=== PATIENT | female | born 1950 | race Caucasian/White ===

== ENCOUNTER 2019-01-19 22:34 | Emergency (ER) | payer MEDICARE ==
[~2019-01-19] VITALS: Ht 165.1 cm; Wt 69.9 kg
--- NOTE | 2019-01-19 23:22 | PHYS DOC ---
Past Medical History Past Medical History: No Pertinent History Past Surgical History: Hysterectomy, Tonsillectomy Alcohol Use: Rarely Drug Use: Marijuana, Methamphetamine Social History Narrative: Former user of crack cocaine, and occasionally uses "shatter" Adult General Chief Complaint Chief Complaint: LOWER EXTREMITY SWELLING HPI HPI 68-year-old female presents to ER via POV for complaints of right lower leg swelling and redness. Patient reports he was the swelling last night and today woke and was having more pain in the lower part of her leg. Patient denies any known injury. Patient denies fever. Patient denies any recent travel, clotting disorder, or prior blood clots in legs or lungs. Patient denies any nausea or vomiting. Patient states she has been ambulatory without assistive devices. Patient denies chest pain, palpitations, or shortness of air. She reports she did smoke methamphetamine yesterday and does use alcohol frequently with last use Tuesday having a couple of beers. Review of Systems Review of Systems Constitutional: Denies fever or chills [] Eyes: Denies change in visual acuity, redness, or eye pain [] HENT: Denies nasal congestion or sore throat [] Respiratory: Denies cough or shortness of breath [] Cardiovascular: Denies CP/palpitations GI: Denies abdominal pain, nausea, vomiting, bloody stools or diarrhea [] : Denies dysuria or hematuria [] Musculoskeletal: Denies back pain. Reports swelling/redness w/mild pain rt lower leg into ankle. Reports has been able to walk without assist Integument: Denies rash or skin lesions [] Neurologic: Denies headache, focal weakness or sensory changes [] Endocrine: Denies polyuria or polydipsia [] All other systems were reviewed and found to be within normal limits, except as documented in this note. Current Medications Current Medications Current Medications Medications (Trade) Dose Ordered Sig/Juliane Start Time Stop Time Status Last Admin Dose Admin Ceftriaxone Sodium (Rocephin) 1 gm 1X ONCE 01/20/19 00:45 01/20/19 00:46 DC 01/20/19 00:51 1 GM Allergies Allergies Allergies Coded Allergies Type Severity Reaction Last Updated Verified Benzodiazepines Allergy Unknown 01/19/19 Yes prednisone Allergy Unknown 01/19/19 Yes tetracycline Allergy Unknown 01/19/19 Yes Uncoded Allergies Type Severity Reaction Last Updated Verified opiates Adverse Reaction Unknown 01/19/19 Physical Exam Physical Exam Constitutional: Well developed, well nourished, no acute distress, non-toxic appearance. [] HENT: Normocephalic, atraumatic, oropharynx moist, nose normal. [] Eyes: Pupils equal, conjunctiva normal, no discharge. [] Neck: Normal range of motion, no tenderness, supple, no stridor. [] Cardiovascular: Heart rate regular rhythm, no murmur [] Lungs & Thorax: Bilateral breath sounds clear to auscultation- resp. equal/nonlabored Abdomen: Bowel sounds normal, soft, no tenderness Skin: Warm, dry, no rash. [] Back: No tenderness, no CVA tenderness. [] Extremities: No tenderness on palp, no cyanosis, no clubbing, ROM intact. 2+ bilat. dorsalis pedis/posterior tibial. Erythema to rt lower anterior johnson to ankle with swelling/warmth- no wounds. Erythema extends to medial/lateral side of rt lower leg. No calf tenderness. Rt calf > lt calf Neurologic: Alert and oriented X 3, normal motor function, normal sensory function, no focal deficits noted. [] Psychologic: Affect normal, judgement normal, mood normal. [] Current Patient Data Vital Signs Vital Signs Date Time Temp Pulse Resp B/P (MAP) Pulse Ox O2 Delivery O2 Flow Rate FiO2 01/19/19 22:47 97.7 101 20 148/79 (102) 99 Room Air 97.7 Lab Values Laboratory Tests Test 01/19/19 23:31 01/20/19 00:02 Urine Collection Type Unknown Urine Color Yellow Urine Clarity Cloudy Urine pH 5.5 Urine Specific [place] 1.020 Urine Protein Negative mg/dL (NEG-TRACE) Urine Glucose (UA) Negative mg/dL (NEG) Urine Ketones (Stick) Negative mg/dL (NEG) Urine Blood Small (NEG) Urine Nitrite Negative (NEG) Urine Bilirubin Negative (NEG) Urine Urobilinogen Dipstick 1.0 mg/dL (0.2 mg/dL) Urine Leukocyte Esterase Moderate (NEG) Urine RBC Occ /HPF (0-2) Urine WBC 20-40 /HPF (0-4) Urine Squamous Epithelial Cells Few /LPF Urine Bacteria Few /HPF (0-FEW) Urine Mucus Marked /LPF Urine Opiates Screen Neg (NEG) Urine Methadone Screen Neg (NEG) Urine Barbiturates Neg (NEG) Urine Phencyclidine Screen Neg (NEG) Urine Amphetamine/Methamphetamine Pos (NEG) Urine Benzodiazepines Screen Neg (NEG) Urine Cocaine Screen Neg (NEG) Urine Cannabinoids Screen Neg (NEG) Urine Ethyl Alcohol Neg (NEG) White Blood Count 7.9 x10^3/uL (4.0-11.0) Red Blood Count 4.55 x10^6/uL (3.50-5.40) Hemoglobin 13.3 g/dL (12.0-15.5) Hematocrit 39.6 % (36.0-47.0) Mean Corpuscular Volume 87 fL (79-100) Mean Corpuscular Hemoglobin 29 pg (25-35) Mean Corpuscular Hemoglobin Concent 34 g/dL (31-37) Red Cell Distribution Width 13.5 % (11.5-14.5) Platelet Count 326 x10^3/uL (140-400) Neutrophils (%) (Auto) 59 % (31-73) Lymphocytes (%) (Auto) 30 % (24-48) Monocytes (%) (Auto) 8 % (0-9) Eosinophils (%) (Auto) 2 % (0-3) Basophils (%) (Auto) 1 % (0-3) Neutrophils # (Auto) 4.6 x10^3/uL (1.8-7.7) Lymphocytes # (Auto) 2.4 x10^3/uL (1.0-4.8) Monocytes # (Auto) 0.7 x10^3/uL (0.0-1.1) Eosinophils # (Auto) 0.2 x10^3/uL (0.0-0.7) Basophils # (Auto) 0.1 x10^3/uL (0.0-0.2) Sodium Level 140 mmol/L (136-145) Potassium Level 4.2 mmol/L (3.5-5.1) Chloride Level 107 mmol/L (98-107) Carbon Dioxide Level 25 mmol/L (21-32) Anion Gap 8 (6-14) Blood Urea Nitrogen 15 mg/dL (7-20) Creatinine 0.8 mg/dL (0.6-1.0) Estimated GFR (Cockcroft-Gault) 71.5 BUN/Creatinine Ratio 19 (6-20) Glucose Level 124 mg/dL (70-99) H Lactic Acid Level 1.1 mmol/L (0.4-2.0) Calcium Level 8.9 mg/dL (8.5-10.1) Magnesium Level 2.1 mg/dL (1.8-2.4) Total Bilirubin 0.3 mg/dL (0.2-1.0) Aspartate Amino Transferase (AST) 29 U/L (15-37) Alanine Aminotransferase (ALT) 32 U/L (14-59) Alkaline Phosphatase 97 U/L (46-116) Total Protein 7.3 g/dL (6.4-8.2) Albumin 3.3 g/dL (3.4-5.0) L Albumin/Globulin Ratio 0.8 (1.0-1.7) L Laboratory Tests 01/20/19 00:02 Laboratory Tests 01/20/19 00:02 EKG EKG [] Radiology/Procedures Radiology/Procedures PROCEDURE: VENOUS LOWER EXTREMITY RIGHT INDICATION: Leg swelling and redness COMPARISON: None. TECHNIQUE: Grayscale, color and doppler ultrasound images were obtained of the right lower extremity venous vasculature. RIGHT: No thrombus identified in the common femoral vein, femoral vein, popliteal vein or visualized calf veins. IMPRESSION: 1. No thrombus identified in deep venous system of right lower extremity. Electronically signed by: Terra Fajardo MD (01/20/2019 2:11 AM) [facility] DICTATED and SIGNED BY: TERRA FAJARDO MD DATE: 01/20/19 0211 Course & Med Decision Making Course & Med Decision Making Pertinent Labs and Imaging studies reviewed. (See chart for details) 0110: Discussion had with patient regarding drug cessation as she reported she had smoked methamphetamines yesterday. In depth conversation had with patient as admission was offered for further care and monitoring-patient was adamant on home discharge. Discussed test results. Ultrasound result of right lower extremity is pending. If ultrasound results negative for DVT patient is requesting to be discharged home with antibiotics with plans to follow-up with her primary care physician. Patient remains PMS intact in bilateral lower extremities she has had no increase in redness and right lower leg/ankle area. 0215: Pt was evaluated in the ER for complaints of right lower leg redness, swelling, and some discomfort. Patient had labs and ultrasound obtain. Labs were unremarkable with normal limit WBCs and lactic acid. Ultrasound was negative for DVT. Patient was offered admission for further care and monitoring and she was adamant on being discharged home. Patient's case was discussed with Dr. Dinh and patient will be discharged home on Bactrim DS and Keflex which will also cover treatment for UTI. Patient did receive IV Rocephin 1 g for her UTI while in the ER. Patient remains PMS intact in right lower extremity with no increased swelling or redness to right lower leg. Patient advised if symptoms worsen prior to follow-up with her primary care physician she should return to the ER for further care and patient verbalized understanding. Drug cessation was discussed with patient. Education provided on signs and symptoms to return to ER. Discharge instructions were discussed. Dragon Disclaimer Dragon Disclaimer This electronic medical record was generated, in whole or in part, using a voice recognition dictation system. Departure Departure Impression: Primary Impression: Cellulitis of right lower extremity Additional Impression: Urinary tract infection Disposition: HOME, SELF-CARE Condition: STABLE Referrals: LEONIE JAIN MD (PCP) Patient Instructions: Cellulitis, Urinary Tract Infection Additional Instructions: Drink adequate amounts of water daily. Avoid drug use. Tylenol and/or ibuprofen as needed for pain as directed on container. It is important for you to follow-up with your primary care physician on Tuesday for reevaluation and further care. If symptoms worsen over the weekend or with any concerns return to the emergency department for reevaluation and further care. Elevate your right leg as much as possible to improve swelling. Scripts Cephalexin (KEFLEX) 500 Mg Capsule 500 MG PO QID for 10 Days, #40 CAP 0 Refills Prov: HO BAUTISTA APRN 01/20/19 Sulfamethoxazole/Trimethoprim (BACTRIM DS TABLET) 1 Each Tablet 2 TAB PO BID, #20 TAB 0 Refills Prov: HO BAUTISTA APRN 01/20/19 Problem Qualifiers HO BAUTISTA APRN Jan 19, 2019 23:22
[2019-01-19 23:42] LABS: BILIRUBIN,URINE NEGATIVE (NEG); CLARITY,URINE CLOUDY; COLOR,URINE YELLOW; NITRITE,URINE NEGATIVE (NEG); PH,URINE 5.5; PROTEIN,URINE NEGATIVE (NEG-TRACE)
[2019-01-19 23:48] LABS: BARBITURATES NEG (NEG); BENZODIAZEPINES NEG (NEG); CANNABINOIDS NEG (NEG); COCAINE NEG (NEG); METHADONE NEG (NEG); OPIATES NEG (NEG); PHENCYCLIDINE NEG (NEG)
[2019-01-19 23:49] LABS: AMPHETAMINE/METHAMPHETAMINE POS (NEG)
[2019-01-19 23:50] LABS: BACTERIA,URINE FEW /HPF (0-FEW); RBC,URINE OCC /HPF (0-2); SQUAMOUS EPITHELIAL CELL,UR FEW /LPF; WBC,URINE 20-40 /HPF (0-4)
[2019-01-20 00:11] LABS: BASO # 0.1 x10^3/uL (0.0-0.2); BASO % 1 % (0-3); EOS # 0.2 x10^3/uL (0.0-0.7); EOS % 2 % (0-3); HEMATOCRIT 39.6 % (36.0-47.0); HEMOGLOBIN 13.3 g/dL (12.0-15.5); LYMPH # 2.4 x10^3/uL (1.0-4.8); LYMPH % 30 % (24-48); MEAN CORPUSCULAR HEMOGLOBIN 29 pg (25-35); MEAN CORPUSCULAR HGB CONC 34 g/dL (31-37); MEAN CORPUSCULAR VOLUME 87 fL (79-100); MONO # 0.7 x10^3/uL (0.0-1.1); MONO % 8 % (0-9); NEUT # 4.6 x10^3/uL (1.8-7.7); NEUT % 59 % (31-73); PLATELET COUNT 326 x10^3/uL (140-400); RED BLOOD COUNT 4.55 x10^6/uL (3.50-5.40); RED CELL DISTRIBUTION WIDTH 13.5 % (11.5-14.5); WHITE BLOOD COUNT 7.9 x10^3/uL (4.0-11.0)
[2019-01-20 00:21] LABS: CALCIUM 8.9 mg/dL (8.5-10.1); CREATININE 0.8 mg/dL (0.6-1.0); GFR 71.5; POTASSIUM 4.2 mmol/L (3.5-5.1)
[2019-01-20 00:27] LABS: ALBUMIN 3.3 g/dL (3.4-5.0); ALBUMIN/GLOBULIN RATIO 0.8 (1.0-1.7); MAGNESIUM 2.1 mg/dL (1.8-2.4); TOTAL BILIRUBIN 0.3 mg/dL (0.2-1.0); TOTAL PROTEIN 7.3 g/dL (6.4-8.2)
[2019-01-20] MEDS ORDERED: cefTRIAXone IV Push 1 GM VIAL. IVP ONE (00:45)
[2019-01-20] MEDS ORDERED: SULF1TAB24 PO (01:19)
[2019-01-20] MEDS ORDERED: CEPH-264 PO (01:19)
--- NOTE | 2019-01-20 02:14 | RAD ---
INDICATION: Leg swelling and redness COMPARISON: None. TECHNIQUE: Grayscale, color and doppler ultrasound images were obtained of the right lower extremity venous vasculature. RIGHT: No thrombus identified in the common femoral vein, femoral vein, popliteal vein or visualized calf veins. IMPRESSION: 1. No thrombus identified in deep venous system of right lower extremity. Electronically signed by: Casey Dipo MD (01/20/2019 2:11 AM) [facility]
[2019-01-20 02:52] VITALS: BP 150/73
== END 2019-01-20 02:57 | disposition home or self-care (01) ==
LOC: ER 01-20 00:27
DX: L03.115 Cellulitis of right lower limb (principal); N39.0 Urinary tract infection, site not specified; Z88.1 Allergy status to other antibiotic agents; Z88.8 Allergy status to other drugs, medicaments and biological substances; Z88.5 Allergy status to narcotic agent
CPT/HCPCS: 36415; 80053; 80307; 81001; 83605; 83735; 85025; 87040; 87086; 93971; 96374; 99285; J0696